=== PATIENT | male | born 2000 | race African-American/Black ===

== ENCOUNTER 2021-01-14 18:34 | Emergency (ER) | payer OTHER ==
[2021-01-14 20:12] LABS: BILIRUBIN NEGATIVE (NEGATIVE); BLOOD NEGATIVE Ery/uL (NEGATIVE); CLARITY CLEAR (CLEAR); COLOR YELLOW (YELLOW); GLUCOSE (U) NORMAL (NORMAL); LEUKOCYTES NEGATIVE Leu/uL (NEGATIVE); NITRITE NEGATIVE (NEGATIVE); PROTEIN NEGATIVE (NEGATIVE)
[2021-01-14 20:14] LABS: BASOPHIL 0.2 % (0-2); EOSINOPHIL 0.4 % (0-5); HCT 44.4 % (42.0-52.0); HGB 14.3 g/dl (13.2-18.0); LYMPHOCYTE 17.9 % (15-48); MCHC 32.2 g/dL (32.0-36.0); MCV 77.8 fL (78.0-100.0); MONOCYTE 5.9 % (0-12); MPV 11.7 fL (6.0-9.5); NEUTROPHIL 75.1 % (41-80); NRBC 0; PLT 298 K/uL (150-400); RBC 5.71 M/uL (4.70-6.00); RDW 16.4 % (11.5-14.0); WBC 12.3 K/uL (4.0-10.5)
[2021-01-14 20:24] LABS: ALBUMIN 3.9 g/dL (3.4-5.0); BILIRUBIN - TOTAL 0.2 mg/dL (0.2-1.0); BUN/CREAT RATIO (CALC) 11.1 RATIO; CREATININE 1.08 mg/dL (0.67-1.17); GLOBULIN (CALCULATION) 4.2 g/dL; POTASSIUM 4.4 mmol/L (3.5-5.1); TOTAL PROTEIN 8.1 g/dL (6.4-8.2)
[2021-01-14] MEDS ORDERED: ZOFRAN4 M1 PO (21:40)
== END 2021-01-14 22:17 | disposition home or self-care (01) ==
LOC: FER 18:34
PROVIDERS: Nurse Practitioner Family
DX: R11.2 Nausea with vomiting, unspecified (principal); R10.9 Unspecified abdominal pain
CPT/HCPCS: 36415; 80053; 81003; 83690; 85025; 99284; J7030; Q9967